=== PATIENT | female | born 1995 | race Caucasian/White ===

== ENCOUNTER 2017-08-03 06:57 | Emergency (ER) | payer MEDICAID ==
[~2017-08-03] VITALS: Ht 152.4 cm; Wt 68.0 kg
[~2017-08-03 06:57] MED LIST: COLACE100 MG PO; MOTRIN800 MG PO; NORCO1 TA2 PO
[2017-08-03 08:12] LABS: microscopic required? YES; urine erythrocyte TRACE (NEGATIVE)
[2017-08-03 09:34] VITALS: BP 126/82
== END 2017-08-03 09:34 | disposition home or self-care (01) ==
LOC: ED 06:57
DX: N39.0 Urinary tract infection, site not specified (principal); Z90.49 Acquired absence of other specified parts of digestive tract